=== PATIENT | male | born 1990 | race African-American/Black ===

== ENCOUNTER 2020-04-03 12:29 | Emergency (ER) | payer SELFPAY ==
[~2020-04-03] VITALS: Ht 180.3 cm; Wt 110.0 kg
[2020-04-03] MEDS ORDERED: ONDANSETRON HCL INJ 2MG/ML 2ML 2 MG/ML VIAL IV NR (13:30)
[2020-04-03] MEDS ORDERED: HYDROMORPHONE 2MG/ML 2 MG/ML ML IV ONE (13:30)
--- NOTE | 2020-04-03 13:32 | Emergency Department Note ---
History of Present Illnes History of Present Illness Chief Complaint: Headache History of Present Illness This is a 29 year old male . 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 Any updates have been documented here. Past Medical History Recent Fever: No Clinical Suspicion of Infectio: No New/Unexplained Change in Ment: No Past Medical History: Hypertension Past Surgical History: None Social History Smoking Cessation: Never Smoker Alcohol Use: Occasional Any Illegal Drug Use: No TB Exposure/Symptoms: No Physically hurt or threatened: No Other Any Pre-Existing Lines (PICC,: No Is patient up to date on immun: No Review of Systems Review of Systems Constitutional: no symptoms EENTM: blurred vision Cardiovascular: no symptoms Respiratory: no symptoms Gastrointestinal: no symptoms Genitourinary: no symptoms Musculoskeletal: no symptoms Neurological: as per HPI Psychological: no symptoms Endocrine: no symptoms Hematological/Lymphatic: no symptoms (mild left eye) Review of other systems All other systems reviewed and negative. Physical Exam Related Data Allergies: Coded Allergies: No Known Allergies (Unverified , 04/03/20) Vital signs reviewed: Yes Physical Exam CONSTITUTIONAL Constitutional: well-developed HENT HENT: normocephalic, atraumatic, nose normal EYES Eyes: PERRL, conjunctivae normal, EOM normal, lids normal NECK Neck: ROM normal, supple (mild pain with movement of the neck neg kernig and brudinski sign) PULMONARY Pulmonary: effort normal, breath sounds normal CARDIOVASCULAR Cardiovascular: regular rhythm, heart sounds normal, intact distal pulses, capillary refill normal, normal rate GASTROINTESTINAL Abdominal: soft, nontender, bowel sounds normal GENITOURINARY Genitourinary: exam deferred SKIN Skin: warm, dry MUSCULOSKELETAL Musculoskeletal: ROM normal NEUROLOGICAL Neurological: alert, oriented x 3, DTRs normal, no gross motor or sensory deficits PSYCHOLOGICAL Psychological: mood/affect normal, behavior normal Results Laboratory Laboratory labs WNL except mild elevation alt and ast and total protein sed rate pending Lab results reviewed: Yes Laboratory comments ESR 3 WNL Imaging Imaging results reviewed: Yes Impressions CT of Head and Neck WNL Critical Care Time Subsequent provider I assumed direction of critical care for this patient from another provider of my specialty. Assessment & Plan Reassessment Reassessment time: 16:44 (headache moderately improved. unclear if pain in cervical in nature and radiating to the head or visa versa. xray labs speak against any mass , bleed or likely infectious cause for pain. the possibility of migraine headache also entertained) Reassessment pt also states out of his norvas will refill #30 Assessment & Plan Final Impression: (1) OTHER MUSCLE SPASM (2) HEADACHE Assessment & Plan take meds as prescribed especially blood pressure medication. Return if condition worsens or for any other concern. Follow with your doctor in 48 hours Depart Disposition: HOME, SELF-group home Meds Active Scripts Ibuprofen (MOTRIN) 200 Mg Tab, 600 MG PO TID PRN for headache for 10 Days, #30 TAB Prov:CLARITA COSBY MD 04/03/20 Cyclobenzaprine Hcl (FLEXERIL) 5 Mg Tablet, 5 MG PO TID PRN for muscle spasms for 5 Days, #15 0 Refills Prov:CLARITA COSBY MD 04/03/20 Acetaminophen With Codeine (TYLENOL WITH CODEINE #3 TABLET) 1 Each Tablet, 300 MG PO QID for headache, #10 TAB 0 Refills Prov:CLARITA COSBY MD 04/03/20 Reported Medications Amlodipine Besylate (AMLODIPINE BESYLATE) 10 Mg Tablet, 10 MG PO DAILY, #30 TAB 04/03/20 CLARITA COSBY MD April 03, 2020 13:32
[2020-04-03] MEDS ORDERED: MORPHINE SULFATE 2 MG/ML SYR 1ML IV NR (14:15)
[2020-04-03] MEDS ORDERED: ONDANSETRON HCL INJ 2MG/ML 2ML 2 MG/ML VIAL ONE (14:18)
[2020-04-03] MEDS ORDERED: MORPHINE SULFATE INJ 4 MG/ML INJ 1ML ONE ×2 (14:18→15:48)
--- NOTE | 2020-04-03 15:25 | Diagnostic Imaging Report ---
History: Headache, left-sided neck pain. Comparison studies:None Technique: Axial images were obtained from the brain and cervical spine. Coronal and sagittal images reconstructed from the axial data. Intravenous contrast: None Dose modulation, iterative reconstruction, and/or weight based adjustment of the mA/kV was utilized to reduce the radiation dose to as low as reasonably achievable. Findings: Head CT: Scalp/skull: No abnormalities. No fractures, blastic or lytic lesions. Brain sulci: Appropriate for age. Ventricles: Normal in size and configuration. No hydrocephalus. Extra-axial spaces: No masses. No fluid collections. Parenchyma: No abnormal densities. No masses, hemorrhage, acute or chronic cortical vascular insults. Sellar/suprasellar region: No abnormalities. Craniocervical junction: Patent foramen magnum. No Chiari one malformation. Cervical spine CT: Fractures: None. Soft tissues: No gross abnormalities. Atlantoaxial articulation: Intact. Alignment: Straightening of the normal lordosis. No scoliosis. Cervicomedullary junction: No abnormalities. Patent foramen magnum. Vertebrae: No infection or neoplasm. Degenerative changes: None. Incidental findings: None. Impression: Head CT: 1. Normal exam. Cervical spine CT: 1. No acute abnormalities. 2. Cannot exclude ligament, spinal cord and or vascular abnormalities on the basis of this examination. Signed by: DR Vargas Sorenson M.D. on 04/03/2020 3:22 PM
[2020-04-03] MEDS ORDERED: MORPHINE SULFATE 2 MG/ML SYR 1ML IV STA (15:35)
[2020-04-03] MEDS ORDERED: CLONIDINE HCL 0.1 MG TAB ONE (15:56)
[2020-04-03] MEDS ORDERED: CLONIDINE HCL 0.1 MG TAB PO ONE (16:00)
[2020-04-03] MEDS ORDERED: AMLODIPINE BESY10 MG PO (16:49)
[2020-04-03 16:51] VITALS: BP 160/96
[2020-04-03] MEDS ORDERED: TYLENOL WITH C1 EACH PO (16:53)
[2020-04-03] MEDS ORDERED: MOTRIN200 MG PO (16:53)
[2020-04-03] MEDS ORDERED: CYCLOBENZAPRINE5 MG PO (16:53)
== END 2020-04-03 17:04 | disposition home or self-care (01) ==
LOC: FSED 12:29
DX: R51 Headache (principal); M62.838 Other muscle spasm; I10 Essential (primary) hypertension
CPT/HCPCS: 36415; 70450; 72125; 80048; 80076; 85025; 85610; 85651; 96374; 96375; 96376; 99284; J1170; J2270 ×2; J2405